=== PATIENT | male | born 1980 | race Two or more races ===

== ENCOUNTER 2018-01-13 11:30 | Inpatient (IN) | payer OTHER ==
[2018-01-13] VITALS (14 sets, daily range): BP systolic 95–121; BP diastolic 47–77
[~2018-01-13] VITALS: Ht 177.8 cm; Wt 86.6 kg
[~2018-01-13 11:30] MED LIST: ceFAZolin sod 2 GM in D5W 110 ML IVPB ONE
[2018-01-13] MEDS ORDERED: HUMALOG100 UNIT/1 SUBQ (12:31)
[2018-01-13] MEDS ORDERED: LANTUS SOL100 UNIT/1 SUBQ (12:31)
[2018-01-13] MEDS ORDERED: Thrombin 5000 units TOPIC ONE (13:11)
[2018-01-13] MEDS ORDERED: Vancomycin 1gm inj IVPB ONE (13:11)
[2018-01-13] MEDS ORDERED: Thrombin 5000 units spray kit TOPIC ONE (13:11)
[2018-01-13] MEDS ORDERED: Gelfoam Absorbable 1gm powder pkt TOPIC ONE (13:12)
[2018-01-13] MEDS ORDERED: Bacitracin 50000 Units Vial ONE (13:12)
[2018-01-13] MEDS ORDERED: Propofol 200mg/20ml IV ONE (13:18)
[2018-01-13] MEDS ORDERED: Ketorolac 30mg Inj ONE ×2 (13:18→18:35)
[2018-01-13] MEDS ORDERED: Dexamethasone 4mg/ml vial ONE (13:19)
[2018-01-13] MEDS ORDERED: Lidocaine 1% MPF 10mg/ml 5ml ONE (13:19)
[2018-01-13] MEDS ORDERED: EPINEPHrine 1mg/1ml Amp ONE (13:22)
[2018-01-13] MEDS ORDERED: Bupivacaine 0.5% Inj 30 ml vial INJ ONE (13:22)
[2018-01-13] MEDS ORDERED: NS Irrig 1000ml ONE (13:33)
[2018-01-13] MEDS ORDERED: Zemuron 50mg/5ml Inj IV ONE (13:33)
[2018-01-13] MEDS ORDERED: Sterile Water Irrig 1000ml IRRIG ONE (13:33)
[2018-01-13] MEDS ORDERED: Succinylcholine 20mg/ml 10ml vial ONE (13:33)
[2018-01-13] MEDS ORDERED: LR 1000ml ONE (13:33)
--- NOTE | 2018-01-13 13:39 | Pre-Procedure Note/Attestation ---
Pre-Procedure Note/Attestation Complete Prior to Procedure Procedure Narrative: L45 DECOMPRESSION, FUSION, INSTRUMENTATION, ALLOGRAFT AND AUTOGRAFT WITH INTERBODY FUSION Indications for Procedure Pre-Operative Diagnosis: LUMBAR SPONDYLOSIS AND RADICULOPATHY Attestation I attest that I discussed the nature of the procedure; its benefits; risks and complications; and alternatives (and the risks and benefits of such alternatives ), prior to the procedure, with the patient (or the patient's legal merchandising representative). I attest that, if there was a reasonable possibility of needing a blood transfusion, the patient (or the patient's legal merchandising representative) was given the [facility] standardized written summary, pursuant to the Zana Leopoldo Blood Safety Act ([place] Health and Safety Code # 1645, as amended). I attest that I re-evaluated the patient just prior to the surgery and that there has been no change in the patient's H&P, except as documented below: JUAN C NAJERA Jan 13, 2018 13:39
[2018-01-13] MEDS ORDERED: ceFAZolin sod 1 GM in D5W 55 ML IV SCH (14:00)
[2018-01-13] MEDS ORDERED: fentaNYL 100 mcg/2 mL IV ONE ×2 (14:32→17:29)
[2018-01-13] MEDS ORDERED: LR 1000ml 1,000 ML IVLG SCH (14:44)
[2018-01-13] MEDS ORDERED: DiphenhydrAMINE 50mg/ml Inj IVP PRN (14:45)
[2018-01-13] MEDS ORDERED: Midazolam 2mg/2ml Inj IVP PRN (14:45)
[2018-01-13] MEDS ORDERED: Ketorolac 30mg Inj IV PRN (14:45)
[2018-01-13] MEDS ORDERED: Hydromorphone 0.5mg/0.5ml inj IVP PRN (14:45)
--- NOTE | 2018-01-13 14:47 | 48 Hour Post Anesthesia Eval ---
Post Anesthesia Evaluation Procedure: L4-5 interbody fusion Date of Evaluation: Jan 15, 2018 Time of Evaluation: 14:46 Blood Pressure Systolic: 123 0: 68 Pulse Rate: 70 Respiratory Rate: 19 Temperature (Fahrenheit): 98 O2 Sat by Pulse Oximetry: 99 Airway: patent Nausea: No Vomiting: No Hydration Status: adequate Mental Status/LOC: patient returned to baseline Post-Anesthesia Complications: none Follow-up care needed: patient intructions given Wilson Humphreys M.D. Jan 13, 2018 14:47
[2018-01-13] MEDS ORDERED: Acetaminophen (Non formulary) 100 ML IV SCH (15:20)
[2018-01-13] MEDS ORDERED: Meperidine 50mg/ml Inj(FOR RIGORS ONLY) ONE (16:57)
[2018-01-13] MEDS ORDERED: Naloxone 0.4mg/ml Inj IVP PRN (18:30)
[2018-01-13] MEDS ORDERED: Norco 5mg/325mg tab ORAL PRN (18:30)
[2018-01-13] MEDS ORDERED: HYDROcodone/Acetamin 7.5/325 tab ORAL PRN (18:30)
[2018-01-13] MEDS ORDERED: DiphenhydrAMINE 50mg/ml Inj ONE (18:34)
[2018-01-13] MEDS ORDERED: D5 1/2NS 1,000 ML IV SCH (19:00)
[2018-01-13] MEDS: ceFAZolin sod 1 GM in D5W 110 ML IV SCH (21:00)
[2018-01-13] MEDS ORDERED: NovoLOG Insulin Flexpen SUBQ SCH (21:00)
[2018-01-13] MEDS: Docusate 100mg cap ORAL SCH (21:00)
[2018-01-13] MEDS: Levemir Flexpen SUBQ SCH (21:06)
[2018-01-14] MEDS: NovoLOG Insulin Flexpen SUBQ SCH ×8 (02:24→23:37)
[2018-01-14 04:00] VITALS: BP 114/64
[2018-01-14] MEDS: ceFAZolin sod 1 GM in D5W 110 ML IV SCH ×3 (06:00→21:36)
[2018-01-14 08:00] VITALS: BP 105/60
[2018-01-14] MEDS: Docusate 100mg cap ORAL SCH ×2 (09:00→17:28)
--- NOTE | 2018-01-14 11:50 | General Progress Note ---
Progress Note Progress Note DOING WELL NO LEG PAIN MILD LBP ONLY ON TYL FOR PAIN AVSS A AND O TIMES 3 DRESSING SLIGHT DRAINAGE REPLACED INC INTACT STERIS IN PLACE CALVES SOFT AND NT 5/5 BLE AND UE 5/5 ISS Q 3 NOW PER MEDICINCE A: DOING WELL ON POD ONE P: OOB PT ISS MEDICINE FU OXANA JAVIER SCDS PAIN MANAGEMENT JUAN C NAJERA Jan 14, 2018 11:50
[2018-01-14 12:00] VITALS: BP 104/64
--- NOTE | 2018-01-14 15:00 | Operative Note - Dictated ---
DATE OF OPERATION: 01/13/2018 PREOPERATIVE DIAGNOSIS: L4-L5 disk protrusion with stenosis, annular fissure/tear with left lower extremity radiculopathy. POSTOPERATIVE DIAGNOSIS: L4-L5 disk protrusion with stenosis, annular fissure/tear with left lower extremity radiculopathy. PROCEDURE PERFORMED: 1. Posterior interbody fusion at L4-L5. 2. Posterolateral fusion at L4-L5. 3. Pedicle screw instrumentation at L4-L5. 4. Insertion of PEEK biomechanical device at L4-L5. 5. Use of allograft and autograft for arthrodesis. 6. Intraoperative use of microscope for microdissection. SURGEON: Wood Callahan M.D. FEEDER/FOLDER: Beto Pina M.D. ANESTHESIA: General endotracheal anesthesia. ANESTHESIOLOGIST: Wilson Humphreys M.D. INTRAOPERATIVE FINDINGS: Disk protrusion stenosis at L4-L5 with extension to the foraminal and extraforaminal/foraminal junction with nerve root impingement. ESTIMATED BLOOD LOSS: 100 mL. FLUIDS: 1000 mL of crystalloid. INDICATION: The patient has failed nonoperative treatments. The patient's pain is affecting his activities of daily living and functions. He had a preoperative diskography, which showed some concordant pain at the L4-L5 level with back pain and radiating left lower extremity pain. Risks, alternatives, and benefits were discussed with the patient at length. The risks include, but are not limited to, anesthesia complications including , medical complications including liver, kidney, cardiopulmonary deficits, bleeding, infection, dural tear, CSF leak, nerve injury, pars fracture, instability, reherniation, need for future surgery, screw cutoff, screw failure, nonunion, and other complications. The patient understood and wished to proceed. DESCRIPTION OF OPERATION: The patient was brought into the operating room supine on a stretcher. Subsequently, appropriate IV lines were placed and 2 g of Ancef was administered. Anesthesia was induced and the patient was successfully intubated. Sequential compression devices were placed onto the bilateral lower extremities. The patient was gently turned over on the Andrae frame table. All bony prominences were well padded and the abdomen was assured to lay freely. The L4-L5 interspace was positively identified by fluoroscopy preoperatively and an indelible marker was used to navya the midline. SSEP and EMG leads were placed and remained stable throughout the case. At this point, the patient was prepped and draped in the usual sterile fashion with alcohol, chlorhexidine scrub, ChloraPrep, and Ioban draping. Myself and my assistant shift supervisor were prepped and gowned appropriately as well. At this point, the intraoperatively sterilely draped microscope was brought into the field and a midline incision was carried out over L4-L5. Subperiosteal dissection was carried out at L4-L5 including the transverse processes, facet joints at L4-L5. The L3-L4 facet joint capsule was well preserved and now attention was first diverted to doing the posterior osteotomy on the left side at L4-L5. Attention was first diverted to doing an intralumbar laminotomy medial facetectomy and with a high-speed drill, straight and curved curette #2, #3, and #5 [place] punches an intralumbar laminotomy medial facetectomy and removal of the ligamentum flavum was done. Once this was accomplished, a [place] probe was used to protect the neural elements and with a high-speed drill a posterior osteotomy of the superior and inferior facet on the left side was carried out. Before this was done, a [place] probe was used to palpate the foraminal region and there was a large disk herniation, which extended from the lateral, subarticular recess into the foramina and into the foraminal/extraforaminal junction causing impingement of the exiting L4 nerve root as well as the traversing L5 nerve root on the left side. Once the osteotomies were done and a [id number] decompression was obtained, a Vega probe was used to carefully dissect the neural elements and this was done with the aid of an intraoperatively sterilely draped microscope, which allowed microdissection and mobilization of the nerve roots in preparation of posterior interbody fusion and for an excellent decompression. Once this was accomplished, a #11 blade was used to make a box incision in the posterior annulus and with disk preparation instruments including box curettes, in different sizes and shapes, pituitary rongeurs, a subtotal diskectomy was done. Endplate cartilage was removed. Endplate bone was well preserved and this was done under biplanar fluoroscopy. Appropriate trials from the [employer] was used and a 12 mm in height x 26 mm x 10 mm device was chosen. This was the PEEK interbody device. An interspinous distractor was used to help place the trial and this trial was found to be fitting well into the disk space with good recreation of disk height as well as apposition against the endplates. Now the appropriately sized PEEK implant 12 x 26 x 10 mm with 6 mm lordosis was chosen, was packed with bone morphogenic protein [place] putty and local autograft, which was harvested from the osteotomy. Once this was done, attention was diverted to placement of the implant. A medialization of the implant into the disk space was done with the mercerizer machine operator and final AP and lateral fluoroscopy revealed the interbody device to be in excellent position. Before the device was placed, bone morphogenic protein, allograft and autograft were placed into the anterior interbody space with the use of a funnel. Then the PEEK interbody device was placed and found to be well fitting. Now attention was diverted to placement of pedicle screws. Each mammillary process was drilled with a high-speed drill and with a pedicle finder. The center of the pedicles were found probed. The ball-tip probe did not show any cortical breaches. A 6.0 cap was used at each pedicle and the following pedicle screws from the [employer] System was placed at L4 bilaterally 6.0 x 45 mm screws were placed at L5 bilaterally 6.0 x 40 mm screws were placed. Each screw had excellent purchase and biplanar fluoroscopy revealed excellent position of the screws. Once this was accomplished, stimulus-evoked EMG was done at each pedicle screw and at 20 milliamps of current. There was no conduction in the respective nerve roots. Now, 40 and 45 mm rods were used inside the tulips of the pedicle screws and with set screws were torqued appropriately. There was no cross threading of the set screws. Final AP and lateral fluoroscopy revealed all instrumentation to be in good position. The wound was copiously irrigated with triple antibiotic solution multiple times. A decortication of the facet joints and transverse processes was done on the right side and with local autograft as well as graft on putty. A subfascial Hemovac drain was placed. Hemostasis was achieved. A 4 mL of Tisseel fibrin glue was placed over the posterior annulotomy site to prevent posterior migration of BMP and once this was accomplished, attention was diverted to closure. The dorsal lumbar fascia was closed with #1 Vicryl sutures in a watertight interrupted fashion. The subdermal layer was closed with 2-0 Vicryl sutures. The skin was closed with Steri-Strips as well Dermabond sterile dressing tape was placed. The patient was turned supine, was extubated in stable condition and was taken to recovery room in stable condition. All sponge, needle, and instrument counts were correct. Wood Callahan M.D. DR: GREGOR JOB#: [id number] CC: KRISHNA
--- NOTE | 2018-01-14 15:05 | History and Physical ---
History of Present Illness General Date patient seen: Jan 14, 2018 Present Illness HPI 37 years old male with hx of DM, L4-L5 disk protrusion with stenosis, annular fissure/tear with left lower extremity radiculopathy presented for surgical interbody fusion at L4-L5. Postoperatively, he is admitted to medical floor for post-op care. Allergies: Coded Allergies: No Known Allergies (Unverified , 01/11/18) Medication History Scheduled Insulin Glargine (Lantus), 12 SUBQ sliding scale, (Reported) Insulin Lispro (Humalog), 2 SUBQ SLIDING SCALE, (Reported) Patient History Healthcare decision maker KAY-MOTHER Resuscitation status Full Code Advanced Directive on File Past Medical/Surgical History Past Medical/Surgical History: (1) Diabetes mellitus (2) Lumbar radiculopathy Review of Systems Musculoskeletal: Reports: see HPI Physical Exam General Appearance: WD/WN, no apparent distress Lines, tubes and drains: peripheral HEENT: normocephalic, atraumatic Neck: non-tender, normal alignment Respiratory/Chest: chest wall non-tender, lungs clear Breasts: no masses Cardiovascular/Chest: normal peripheral pulses, normal rate Abdomen: normal bowel sounds, non tender Genitourinary/Rectal: normal genital exam Extremities: normal range of motion Skin Exam: normal pigmentation Neurologic: 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 II-XII grossly normal Last 24 Hour Vital Signs Date Time Temp Pulse Resp B/P (MAP) Pulse Ox O2 Delivery O2 Flow Rate FiO2 01/14/18 13:46 100.0 01/14/18 12:00 100.0 100 20 104/64 97 100.0 01/14/18 10:18 100.0 01/14/18 09:19 98.3 01/14/18 08:00 98.3 98 19 105/60 96 98.3 01/14/18 04:00 99.0 88 20 114/64 Nasal Cannula 2.0 99.0 01/13/18 23:41 98.2 98 20 115/69 100 Nasal Cannula 2.0 98.2 01/13/18 22:00 98.3 87 20 95/60 100 Nasal Cannula 2.0 98.3 01/13/18 21:00 98.5 88 20 115/72 100 Nasal Cannula 2.0 98.5 01/13/18 20:30 98.8 99 20 112/77 100 Nasal Cannula 2.0 98.8 01/13/18 20:00 98.3 89 20 113/72 100 Nasal Cannula 2.0 98.3 01/13/18 19:30 98.0 01/13/18 19:15 98.0 88 16 96/54 100 Nasal Cannula 3.0 98.0 01/13/18 19:00 65 15 101/47 100 Nasal Cannula 3.0 01/13/18 18:50 87 16 95/47 100 Nasal Cannula 3.0 01/13/18 18:42 99.9 01/13/18 18:40 88 16 107/63 100 Simple Mask 6.0 01/13/18 18:30 76 15 102/61 100 Simple Mask 6.0 01/13/18 18:20 76 15 104/62 100 Simple Mask 6.0 01/13/18 18:15 77 13 106/61 100 Simple Mask 6.0 01/13/18 18:10 98.6 82 14 100/61 100 Simple Mask 6.0 98.6 Intake and Output 01/13/18 01/14/18 19:00 07:00 Intake Total 1400 ml 3670 ml Output Total 700 ml 2820 ml Balance 700 ml 850 ml Intake Oral 2220 ml IV Total 1400 ml 1450 ml Output Urine Total 600 ml 2600 ml Drainage Total 220 ml Estimated Blood Loss 100 ml Height (Feet): 5 Height (Inches): 10.00 Weight (Pounds): 191 Medications Current Medications Medications (Trade) Dose Ordered Sig/Nathan Route PRN Reason Start Time Stop Time Status Last Admin Dose Admin Acetaminophen (Tylenol) 650 mg Q4H PRN ORAL Fever/Headache 01/14/18 10:00 02/13/18 09:59 01/14/18 13:46 Acetaminophen/ Hydrocodone Bitart ([place] 5/325) 1 tab Q3H PRN ORAL pain score 1-3 01/13/18 18:30 01/20/18 18:29 Acetaminophen/ Hydrocodone Bitart ([place] 7.5/325) 1 tab Q3H PRN ORAL pain score 4-6 01/13/18 18:30 01/20/18 18:29 Acetaminophen/ Hydrocodone Bitart ([place] 7.5/325) 2 tab Q3H PRN ORAL pain scale 7-10 01/13/18 18:30 01/20/18 18:29 Cefazolin Sodium 1 gm/Dextrose 110 ml @ 220 mls/hr EVERY 8 HOURS IV 01/13/18 21:00 01/20/18 20:59 Dextrose (Dextrose 50%) 25 ml STAT PRN IV Hypoglycemia btwn 60-69 mg/dL 01/13/18 20:30 02/12/18 20:29 Dextrose (Dextrose 50%) 50 ml STAT PRN IV Hypoglycemia <60 mg/dL 01/13/18 20:30 02/12/18 20:29 Docusate Sodium (Colace) 100 mg TWICE A DAY ORAL 01/13/18 21:00 02/12/18 20:59 Hydromorphone HCl (Dilaudid) 1 mg Q2H PRN IVP Breakthrough Pain 01/13/18 18:30 01/20/18 18:29 Hydromorphone HCl (Dilaudid) 1 mg Q4H PRN SUBQ Mild Pain (Pain Scale 1-3) 01/13/18 18:30 01/20/18 18:29 Hydromorphone HCl (Dilaudid) 2 mg Q3H PRN SUBQ Severe Pain (Pain Scale 7-10) 01/13/18 18:30 01/20/18 18:29 Hydromorphone HCl (Dilaudid) 2 mg Q4H PRN SUBQ Moderate Pain (Pain Scale 4-6) 01/13/18 18:30 01/20/18 18:29 Insulin Aspart (NovoLOG) Q3HR SUBQ 01/14/18 10:30 02/13/18 10:29 01/14/18 14:55 Insulin Detemir (Levemir) 12 units BEDTIME SUBQ 01/13/18 21:00 02/12/18 20:59 01/13/18 21:06 Naloxone HCl (Narcan) 0.1 mg STAT PRN IVP UNAROUSABLE, RR<12/MIN 01/13/18 18:30 02/12/18 18:29 Sodium Chloride 1,000 ml @ 100 mls/hr Q10H IV 01/13/18 23:15 02/12/18 23:14 01/14/18 09:24 Assessment/Plan Problem List: (1) interbody fusion at L4-L5. (2) Diabetes mellitus ICD Codes: E11.9 - Type 2 diabetes mellitus without complications SNOMED: 24978223 (3) Lumbar radiculopathy ICD Codes: M54.16 - Radiculopathy, lumbar region SNOMED: 432980685 Assessment/Plan post op care pain management sliding scale, diabetic diet. Igor Gallego MD Jan 14, 2018 15:05
[2018-01-14 16:00] VITALS: BP 103/72
[2018-01-14 20:00] VITALS: BP 112/74
[2018-01-14] MEDS: Levemir Flexpen SUBQ SCH (20:59)
[2018-01-14 21:15] VITALS: BP 110/77
[2018-01-14] MEDS: HYDROcodone/Acetamin 7.5/325 tab ORAL PRN (21:21)
[2018-01-15] VITALS: BP 113/89
[2018-01-15] MEDS: NovoLOG Insulin Flexpen SUBQ SCH ×8 (03:14→21:02)
[2018-01-15 04:00] VITALS: BP 116/85
[2018-01-15] MEDS: ceFAZolin sod 1 GM in D5W 110 ML IV SCH ×3 (05:42→21:01)
[2018-01-15 08:00] VITALS: BP 105/67
[2018-01-15] MEDS: Docusate 100mg cap ORAL SCH ×2 (09:09→18:18)
[2018-01-15] MEDS ORDERED: 1/2 NS 1000ml IV ONE (11:25)
[2018-01-15] MEDS ORDERED: Tubing IV Secondary IV ONE (11:25)
[2018-01-15 12:00] VITALS: BP 94/54
[2018-01-15] MEDS: HYDROcodone/Acetamin 7.5/325 tab ORAL PRN ×2 (12:21→16:23)
--- NOTE | 2018-01-15 14:06 | Pulmonology Progress Note ---
Assessment/Plan Problems: (1) interbody fusion at L4-L5. (2) Diabetes mellitus (3) Lumbar radiculopathy Assessment/Plan increase the interval and the amount of Novolog symptomatic treatment analgesics Subjective ROS Limited/Unobtainable: No Constitutional: Reports: no symptoms HEENT: Repors: no symptoms Respiratory: Reports: no symptoms Allergies: Coded Allergies: No Known Allergies (Unverified , 01/11/18) Objective Last 24 Hour Vital Signs Date Time Temp Pulse Resp B/P (MAP) Pulse Ox O2 Delivery O2 Flow Rate FiO2 01/15/18 12:00 98.8 103 19 94/54 97 98.8 01/15/18 08:00 99.9 101 20 105/67 96 99.9 01/15/18 06:24 99.0 01/15/18 05:54 99.0 01/15/18 04:00 99.0 88 20 116/85 99 Room Air 99.0 01/15/18 03:58 99.0 01/15/18 03:28 99.0 01/15/18 00:00 99.0 99 20 113/89 99 Room Air 99.0 01/14/18 22:20 101.3 01/14/18 21:21 101.3 01/14/18 21:15 101.3 99 20 110/77 99 101.3 01/14/18 20:00 101.5 109 18 112/74 98 Room Air 101.5 01/14/18 18:25 100.0 01/14/18 17:26 100.0 01/14/18 16:00 100.0 105 17 103/72 99 100.0 Intake and Output 01/14/18 01/15/18 19:00 07:00 Intake Total 750 ml 4000 ml Output Total 2450 ml 1410 ml Balance -1700 ml 2590 ml Intake Oral 750 ml 2040 ml IV Total 1960 ml Output Urine Total 2450 ml 1350 ml Drainage Total 60 ml # Voids 3 General Appearance: WD/WN HEENT: normocephalic, atraumatic Respiratory/Chest: chest wall non-tender, lungs clear Cardiovascular: normal peripheral pulses, normal rate Abdomen: normal bowel sounds, soft, non tender Genitourinary: normal external genitalia Extremities: no cyanosis Skin: no rash Neurologic/Psychiatric: nip wrapper II-XII grossly normal, no motor/sensory deficits Lymphatic: no neck adenopathy Microbiology Date/Time Source Procedure Growth Status 01/13/18 13:00 Nasal Nares MRSA Culture - Final NO METHICILLIN RESISTANT STAPH AUREUS... Complete Current Medications Medications (Trade) Dose Ordered Sig/Nathan Route PRN Reason Start Time Stop Time Status Last Admin Dose Admin Acetaminophen (Tylenol) 650 mg Q4H PRN ORAL Fever/Headache 01/14/18 10:00 02/13/18 09:59 01/14/18 17:26 Acetaminophen/ Hydrocodone Bitart ([place] 5/325) 1 tab Q3H PRN ORAL pain score 1-3 01/13/18 18:30 01/20/18 18:29 Acetaminophen/ Hydrocodone Bitart ([place] 7.5/325) 1 tab Q3H PRN ORAL pain score 4-6 01/13/18 18:30 01/20/18 18:29 Acetaminophen/ Hydrocodone Bitart ([place] 7.5/325) 2 tab Q3H PRN ORAL pain scale 7-10 01/13/18 18:30 01/20/18 18:29 01/15/18 12:21 Cefazolin Sodium 1 gm/Dextrose 110 ml @ 220 mls/hr EVERY 8 HOURS IV 01/13/18 21:00 01/20/18 20:59 01/15/18 13:56 Dextrose (Dextrose 50%) 25 ml STAT PRN IV Hypoglycemia btwn 60-69 mg/dL 01/13/18 20:30 02/12/18 20:29 Dextrose (Dextrose 50%) 50 ml STAT PRN IV Hypoglycemia <60 mg/dL 01/13/18 20:30 02/12/18 20:29 Docusate Sodium (Colace) 100 mg TWICE A DAY ORAL 01/13/18 21:00 02/12/18 20:59 01/15/18 09:09 Hydromorphone HCl (Dilaudid) 1 mg Q2H PRN IVP Breakthrough Pain 01/13/18 18:30 01/20/18 18:29 01/15/18 05:54 Hydromorphone HCl (Dilaudid) 1 mg Q4H PRN SUBQ Mild Pain (Pain Scale 1-3) 01/13/18 18:30 01/20/18 18:29 01/15/18 03:28 Hydromorphone HCl (Dilaudid) 2 mg Q3H PRN SUBQ Severe Pain (Pain Scale 7-10) 01/13/18 18:30 01/20/18 18:29 Hydromorphone HCl (Dilaudid) 2 mg Q4H PRN SUBQ Moderate Pain (Pain Scale 4-6) 01/13/18 18:30 01/20/18 18:29 Insulin Aspart (NovoLOG) Q3HR SUBQ 01/15/18 13:45 02/14/18 16:29 01/15/18 13:55 Insulin Detemir (Levemir) 12 units BEDTIME SUBQ 01/13/18 21:00 02/12/18 20:59 01/14/18 20:59 Naloxone HCl (Narcan) 0.1 mg STAT PRN IVP UNAROUSABLE, RR<12/MIN 01/13/18 18:30 02/12/18 18:29 Sodium Chloride 1,000 ml @ 100 mls/hr Q10H IV 01/13/18 23:15 02/12/18 23:14 01/15/18 05:43 Igor Gallego MD Jan 15, 2018 14:06
[2018-01-15] MEDS ORDERED: NovoLOG Insulin Flexpen SUBQ SCH ×2 (15:00→16:30)
[2018-01-15 16:00] VITALS: BP 94/54
--- NOTE | 2018-01-15 18:12 | General Progress Note ---
Progress Note Progress Note min lbp LEG PAIN RESOLVED HAPPY WITH OUTCOME OF SURGERY THUS FAR AVSS A AND O TIMES 3 HV PULLED DRESSIGN CHANGED QUARTER SIZED SS DRAINAGE FROM INFERIOR ASPECT OF INC 5/5 UE AND LE CALVES SOFT AND NT LT INTACT DOING WELL DRESSING CHECK OOB PT BS CONTROL WITH ISS DC TOMORROW MEDICINE FOLLOWING JUAN C NAJERA Jan 15, 2018 18:12
--- NOTE | 2018-01-15 18:44 | Diagnostic Imaging Report ---
Indication: Fluoroscopic images from spinal surgery. Technique: Multiple fluoroscopic images from spinal surgery submitted for archival the PACS. Operating surgeon: Sindy Total fluoroscopy time: 19.7 seconds Total fluoroscopy dose 5.65 mGy Findings: Multiple fluoroscopic operative images from spinal surgery (posterior instrumented fusion, lumbar) submitted for archival the PACS. Impression: Intraoperative fluoroscopic images from spinal surgery. Please see operative report.
[2018-01-15 20:00] VITALS: BP 123/77
[2018-01-15] MEDS: Levemir Flexpen SUBQ SCH (21:02)
[2018-01-16] VITALS: BP 123/78
[2018-01-16] MEDS: HYDROcodone/Acetamin 7.5/325 tab ORAL PRN (00:09)
[2018-01-16] MEDS: NovoLOG Insulin Flexpen SUBQ SCH ×9 (00:22→23:42)
[2018-01-16 06:00] VITALS: BP 117/87
[2018-01-16] MEDS: ceFAZolin sod 1 GM in D5W 110 ML IV SCH ×2 (06:09→14:27)
[2018-01-16 08:00] VITALS: BP 117/76
[2018-01-16] MEDS: Docusate 100mg cap ORAL SCH ×2 (08:29→18:00)
--- NOTE | 2018-01-16 09:31 | Pulmonology Progress Note ---
Assessment/Plan Problems: (1) interbody fusion at L4-L5. (2) Diabetes mellitus (3) Lumbar radiculopathy Assessment/Plan pt wants insulin between 5 and 10 units symptomatic treatment analgesics dc when ok with surgeon Subjective ROS Limited/Unobtainable: No Constitutional: Reports: no symptoms HEENT: Repors: no symptoms Allergies: Coded Allergies: No Known Allergies (Unverified , 01/11/18) Objective Last 24 Hour Vital Signs Date Time Temp Pulse Resp B/P (MAP) Pulse Ox O2 Delivery O2 Flow Rate FiO2 01/16/18 07:33 99.3 01/16/18 06:34 100.7 01/16/18 06:00 100.7 98 18 117/87 98 100.7 01/16/18 00:00 99.1 94 19 123/78 96 Room Air 99.1 01/15/18 20:23 98.8 01/15/18 20:00 99.6 96 18 123/77 97 Room Air 99.6 01/15/18 16:00 98.8 103 19 94/54 97 98.8 01/15/18 12:00 98.8 103 19 94/54 97 98.8 Intake and Output 01/15/18 01/16/18 19:00 07:00 Intake Total 1510 ml 1480 ml Balance 1510 ml 1480 ml Intake Oral 900 ml 480 ml IV Total 610 ml 1000 ml # Voids 2 4 Objective General Appearance: WD/WN HEENT: normocephalic, atraumatic Respiratory/Chest: chest wall non-tender, lungs clear Cardiovascular: normal rate Genitourinary: normal external genitalia Extremities: no clubbing Skin: no rash Microbiology Date/Time Source Procedure Growth Status 01/13/18 13:00 Nasal Nares MRSA Culture - Final NO METHICILLIN RESISTANT STAPH AUREUS... Complete Current Medications Medications (Trade) Dose Ordered Sig/Nathan Route PRN Reason Start Time Stop Time Status Last Admin Dose Admin Acetaminophen (Tylenol) 650 mg Q4H PRN ORAL Fever/Headache 01/14/18 10:00 02/13/18 09:59 01/16/18 06:34 Acetaminophen/ Hydrocodone Bitart ([place] 5/325) 1 tab Q3H PRN ORAL pain score 1-3 01/13/18 18:30 01/20/18 18:29 Acetaminophen/ Hydrocodone Bitart ([place] 7.5/325) 1 tab Q3H PRN ORAL pain score 4-6 01/13/18 18:30 01/20/18 18:29 Acetaminophen/ Hydrocodone Bitart ([place] 7.5/325) 2 tab Q3H PRN ORAL pain scale 7-10 01/13/18 18:30 01/20/18 18:29 01/16/18 00:09 Cefazolin Sodium 1 gm/Dextrose 110 ml @ 220 mls/hr EVERY 8 HOURS IV 01/13/18 21:00 01/20/18 20:59 01/16/18 06:09 Dextrose (Dextrose 50%) 25 ml STAT PRN IV Hypoglycemia btwn 60-69 mg/dL 01/13/18 20:30 02/12/18 20:29 Dextrose (Dextrose 50%) 50 ml STAT PRN IV Hypoglycemia <60 mg/dL 01/13/18 20:30 02/12/18 20:29 Docusate Sodium (Colace) 100 mg TWICE A DAY ORAL 01/13/18 21:00 02/12/18 20:59 01/16/18 08:29 Hydromorphone HCl (Dilaudid) 1 mg Q2H PRN IVP Breakthrough Pain 01/13/18 18:30 01/20/18 18:29 01/15/18 05:54 Hydromorphone HCl (Dilaudid) 1 mg Q4H PRN SUBQ Mild Pain (Pain Scale 1-3) 01/13/18 18:30 01/20/18 18:29 01/15/18 03:28 Hydromorphone HCl (Dilaudid) 2 mg Q3H PRN SUBQ Severe Pain (Pain Scale 7-10) 01/13/18 18:30 01/20/18 18:29 01/16/18 06:43 Hydromorphone HCl (Dilaudid) 2 mg Q4H PRN SUBQ Moderate Pain (Pain Scale 4-6) 01/13/18 18:30 01/20/18 18:29 01/15/18 20:23 Insulin Aspart (NovoLOG) Q3HR SUBQ 01/15/18 13:45 02/14/18 16:29 01/16/18 08:09 Insulin Detemir (Levemir) 12 units BEDTIME SUBQ 01/13/18 21:00 02/12/18 20:59 01/15/18 21:02 Naloxone HCl (Narcan) 0.1 mg STAT PRN IVP UNAROUSABLE, RR<12/MIN 01/13/18 18:30 02/12/18 18:29 Sodium Chloride 1,000 ml @ 50 mls/hr Q20H IV 01/16/18 08:15 02/15/18 08:14 Igor Gallego MD Jan 16, 2018 09:31
[2018-01-16 12:00] VITALS: BP 115/76
[2018-01-16 16:42] VITALS: BP 125/78
[2018-01-16 20:00] VITALS: BP 128/63
--- NOTE | 2018-01-16 21:20 | General Progress Note ---
Progress Note Progress Note DOING WELL WITH MINIMAL PAIN NO LEG PAIN MIN LBP AVSS INC CDI NO DRAINAGE MOTOR IN THE LE IS 5/5 CALVES SOFT AND NT p: DC TOMORROW CONTINUE TO MONITOR SUGARS ISS FU IN 7 TO TEN DAYS JUAN C NAJERA Jan 16, 2018 21:20
[2018-01-16] MEDS: Levemir Flexpen SUBQ SCH (21:43)
[2018-01-17] MEDS: NovoLOG Insulin Flexpen SUBQ SCH ×8 (02:49→23:28)
[2018-01-17 05:53] VITALS: BP 106/61
[2018-01-17 08:00] VITALS: BP 114/68
[2018-01-17] MEDS: Docusate 100mg cap ORAL SCH ×2 (09:15→18:14)
[2018-01-17] MEDS ORDERED: NORCO 5-325 TA1 EACH ORAL (11:46)
[2018-01-17 12:00] VITALS: BP 100/66
[2018-01-17 16:00] VITALS: BP 119/71
[2018-01-17 20:00] VITALS: BP 118/69
[2018-01-17] MEDS: Levemir Flexpen SUBQ SCH (20:46)
--- NOTE | 2018-01-17 21:36 | Pulmonology Progress Note ---
Assessment/Plan Problems: (1) interbody fusion at L4-L5. (2) Diabetes mellitus (3) Lumbar radiculopathy Assessment/Plan BS better getting accucheck Q3 hours symptomatic treatment analgesics dc when ok with surgeon Subjective ROS Limited/Unobtainable: No Interval Events: happier about sliding scale Allergies: Coded Allergies: No Known Allergies (Unverified , 01/11/18) Objective Last 24 Hour Vital Signs Date Time Temp Pulse Resp B/P (MAP) Pulse Ox O2 Delivery O2 Flow Rate FiO2 01/17/18 20:00 100.0 100 18 118/69 96 Room Air 100.0 01/17/18 19:47 100.0 01/17/18 16:00 98.9 91 13 119/71 99 98.9 01/17/18 12:00 97.6 92 15 100/66 99 97.6 01/17/18 08:00 97.9 91 14 114/68 98 97.9 01/17/18 05:53 98.7 88 18 106/61 99 Room Air 98.7 Intake and Output 01/16/18 01/17/18 19:00 07:00 Intake Total 2000 ml 600 ml Output Total 0 ml Balance 2000 ml 600 ml Intake Oral 600 ml Other 2000 ml Stool Total 0 ml # Voids 8 1 # Bowel Movements 2 Objective General Appearance: WD/WN HEENT: normocephalic, atraumatic Respiratory/Chest: chest wall non-tender, lungs clear Cardiovascular: normal rate Genitourinary: normal external genitalia Extremities: no clubbing Skin: no rash Current Medications Medications (Trade) Dose Ordered Sig/Nathan Route PRN Reason Start Time Stop Time Status Last Admin Dose Admin Acetaminophen (Tylenol) 650 mg Q4H PRN ORAL Fever/Headache 01/14/18 10:00 02/13/18 09:59 01/17/18 19:47 Acetaminophen/ Hydrocodone Bitart ([place] 5/325) 1 tab Q3H PRN ORAL pain score 1-3 01/13/18 18:30 01/20/18 18:29 Acetaminophen/ Hydrocodone Bitart ([place] 7.5/325) 1 tab Q3H PRN ORAL pain score 4-6 01/13/18 18:30 01/20/18 18:29 Acetaminophen/ Hydrocodone Bitart ([place] 7.5/325) 2 tab Q3H PRN ORAL pain scale 7-10 4/18/18 18:30 01/20/18 18:29 01/16/18 00:09 Dextrose (Dextrose 50%) 25 ml STAT PRN IV Hypoglycemia btwn 60-69 mg/dL 01/13/18 20:30 02/12/18 20:29 Dextrose (Dextrose 50%) 50 ml STAT PRN IV Hypoglycemia <60 mg/dL 01/13/18 20:30 02/12/18 20:29 Docusate Sodium (Colace) 100 mg TWICE A DAY ORAL 01/13/18 21:00 02/12/18 20:59 01/17/18 18:14 Hydromorphone HCl (Dilaudid) 1 mg Q2H PRN IVP Breakthrough Pain 01/13/18 18:30 01/20/18 18:29 01/16/18 15:26 Hydromorphone HCl (Dilaudid) 1 mg Q4H PRN SUBQ Mild Pain (Pain Scale 1-3) 01/13/18 18:30 01/20/18 18:29 01/17/18 09:32 Hydromorphone HCl (Dilaudid) 2 mg Q3H PRN SUBQ Severe Pain (Pain Scale 7-10) 01/13/18 18:30 01/20/18 18:29 01/17/18 19:48 Hydromorphone HCl (Dilaudid) 2 mg Q4H PRN SUBQ Moderate Pain (Pain Scale 4-6) 01/13/18 18:30 01/20/18 18:29 01/15/18 20:23 Insulin Aspart (NovoLOG) Q3HR SUBQ 01/15/18 13:45 02/14/18 16:29 01/17/18 20:48 Insulin Detemir (Levemir) 12 units BEDTIME SUBQ 01/13/18 21:00 02/12/18 20:59 01/17/18 20:46 Naloxone HCl (Narcan) 0.1 mg STAT PRN IVP UNAROUSABLE, RR<12/MIN 01/13/18 18:30 02/12/18 18:29 Igor Gallego MD Jan 17, 2018 21:36
[2018-01-18 00:17] VITALS: BP 107/66
[2018-01-18] MEDS: NovoLOG Insulin Flexpen SUBQ SCH ×4 (03:00→12:46)
[2018-01-18 04:00] VITALS: BP 110/55
[2018-01-18] MEDS: HYDROcodone/Acetamin 7.5/325 tab ORAL PRN ×2 (08:27→12:47)
[2018-01-18] MEDS: Docusate 100mg cap ORAL SCH (08:27)
[2018-01-18 08:54] VITALS: BP 119/75
--- NOTE | 2018-01-18 12:32 | Pulmonology Progress Note ---
Assessment/Plan Problems: (1) interbody fusion at L4-L5. (2) Diabetes mellitus (3) Lumbar radiculopathy Assessment/Plan BS better getting accucheck Q3 hours symptomatic treatment analgesics dc home with oral analgesics Subjective ROS Limited/Unobtainable: No Constitutional: Reports: no symptoms HEENT: Repors: no symptoms Allergies: Coded Allergies: No Known Allergies (Unverified , 01/11/18) Objective Last 24 Hour Vital Signs Date Time Temp Pulse Resp B/P (MAP) Pulse Ox O2 Delivery O2 Flow Rate FiO2 01/18/18 08:54 99.0 92 18 119/75 100 Room Air 99.0 01/18/18 04:00 99.7 97 18 110/55 97 Room Air 99.7 01/18/18 00:17 98.1 85 18 107/66 98 Room Air 98.1 01/17/18 20:00 100.0 100 18 118/69 96 Room Air 100.0 01/17/18 19:47 100.0 01/17/18 16:00 98.9 91 13 119/71 99 98.9 Intake and Output 01/17/18 01/18/18 19:00 07:00 Intake Total 720 ml 1600 ml Balance 720 ml 1600 ml Intake Oral 720 ml 1600 ml # Voids 3 5 Objective General Appearance: WD/WN HEENT: normocephalic, atraumatic Respiratory/Chest: chest wall non-tender, lungs clear Cardiovascular: normal rate Genitourinary: normal external genitalia Extremities: no clubbing Skin: no rash Current Medications Medications (Trade) Dose Ordered Sig/Nathan Route PRN Reason Start Time Stop Time Status Last Admin Dose Admin Acetaminophen (Tylenol) 650 mg Q4H PRN ORAL Fever/Headache 01/14/18 10:00 02/13/18 09:59 01/17/18 19:47 Acetaminophen/ Hydrocodone Bitart ([place] 5/325) 1 tab Q3H PRN ORAL pain score 1-3 01/13/18 18:30 01/20/18 18:29 Acetaminophen/ Hydrocodone Bitart ([place] 7.5/325) 1 tab Q3H PRN ORAL pain score 4-6 01/13/18 18:30 01/20/18 18:29 Acetaminophen/ Hydrocodone Bitart ([place] 7.5/325) 2 tab Q3H PRN ORAL pain scale 7-10 01/13/18 18:30 01/20/18 18:29 01/18/18 08:27 Dextrose (Dextrose 50%) 25 ml STAT PRN IV Hypoglycemia btwn 60-69 mg/dL 01/13/18 20:30 02/12/18 20:29 Dextrose (Dextrose 50%) 50 ml STAT PRN IV Hypoglycemia <60 mg/dL 01/13/18 20:30 02/12/18 20:29 Docusate Sodium (Colace) 100 mg TWICE A DAY ORAL 01/13/18 21:00 02/12/18 20:59 01/18/18 08:27 Hydromorphone HCl (Dilaudid) 1 mg Q2H PRN IVP Breakthrough Pain 01/13/18 18:30 01/20/18 18:29 01/16/18 15:26 Hydromorphone HCl (Dilaudid) 1 mg Q4H PRN SUBQ Mild Pain (Pain Scale 1-3) 01/13/18 18:30 01/20/18 18:29 01/17/18 09:32 Hydromorphone HCl (Dilaudid) 2 mg Q3H PRN SUBQ Severe Pain (Pain Scale 7-10) 01/13/18 18:30 01/20/18 18:29 01/17/18 19:48 Hydromorphone HCl (Dilaudid) 2 mg Q4H PRN SUBQ Moderate Pain (Pain Scale 4-6) 01/13/18 18:30 01/20/18 18:29 01/15/18 20:23 Insulin Aspart (NovoLOG) Q3HR SUBQ 01/15/18 13:45 02/14/18 16:29 01/18/18 09:13 Insulin Detemir (Levemir) 12 units BEDTIME SUBQ 01/13/18 21:00 02/12/18 20:59 01/17/18 20:46 Naloxone HCl (Narcan) 0.1 mg STAT PRN IVP UNAROUSABLE, RR<12/MIN 01/13/18 18:30 02/12/18 18:29 Igor Gallego MD Jan 18, 2018 12:32
--- NOTE | 2018-01-19 18:42 | Discharge Summary ---
Discharge Summary Hospital Course Date of Admission Jan 13, 2018 at 11:46 Date of Discharge Jan 18, 2018 at 13:30 Admitting Diagnosis HPI Joyce Rodarte is a 37 year old male who was admitted on Jan 13, 2018 at 11:46 for Transforaminal Lumbar Interbody Fusion L4-5 Hospital Course [id number] Discharge Discharge Disposition Patient was discharged to Home (01) Mariangel Uribe NP Jan 19, 2018 18:41
--- NOTE | 2018-01-20 00:45 | Discharge Summary 2 SIG ---
DATE OF ADMISSION: 01/13/2018 DATE OF DISCHARGE: 01/18/2018 DIVEMASTER: Igor Gallego M.D. 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 Postoperatively, he was admitted to medical floor. He was given pain management and was placed on SCDs for DVT prophylaxis. Biggs catheter was eventually discontinued. Blood sugars were monitored and was given NovoLog sliding scale. He was encouraged use of incentive spirometry. Incision was clean, dry, and intact with no drainage. Motor strength on lower extremity 5/5. Calves, soft and nontender. He was seen by physical therapy and occupational therapy. He was eventually discharged home. FINAL DIAGNOSES: 1. Interbody fusion at L4-L5. 2. Diabetes mellitus. 3. Lumbar radiculopathy. Please refer to operative report. DISPOSITION: The patient was discharged home. DISCHARGE MEDICATIONS: Refer to medication list. DISCHARGE INSTRUCTIONS: Follow up in a week. Wood Callahan M.D. I have been assigned to dictate discharge summary on this account and I was not involved in the patient's management. Mariangel Uribe N.P. DR: REÉN JOB#: [id number] CC:
== END 2018-01-18 13:30 | disposition home or self-care (01) | DRG 460 ==
LOC: SDSOVERFLO 11:46 → 3E 18:15
PROC: 4A11X4G Monitoring of Peripheral Nervous Electrical Activity, Intraoperative, External Approach (ICD-10-PCS; principal; 2018-01-13 11:30)
PROC: 0SG00AJ Fusion of Lumbar Vertebral Joint with Interbody Fusion Device, Posterior Approach, Anterior Column, Open Approach (ICD-10-PCS; principal; 2018-01-13 11:30)
DX: M51.16 Intervertebral disc disorders with radiculopathy, lumbar region (principal); E11.9 Type 2 diabetes mellitus without complications
CPT/HCPCS: 36415; 72020; 76001; 82962; 86850; 86900; 86901; 87081; 94003; 94150; J1815; J2405; S5561